=== PATIENT | female | born 1980 | race African-American/Black ===

== ENCOUNTER 2018-05-07 10:56 | Inpatient (IN) ==
[2018-05-09 18:08] VITALS: BP 131/79
== END 2018-05-09 20:50 | disposition home or self-care (01) | DRG 566 ==
LOC: N.LDOUT 10:56 → N.LD 10:59 → N.OB 15:41 → UNDODEPREF 05-08 15:18 → N.OB 05-08 16:54
PROVIDERS: ADMIT Obstetrics & Gynecology; ATTEND Obstetrics & Gynecology

== ENCOUNTER 2018-05-17 10:42 | Inpatient (IN) ==
[2018-05-17] MEDS ORDERED: CITRIC ACID/SODIUM CITRATE 30 ML UDCUP PO ONE (14:18)
[2018-05-17] MEDS ORDERED: LACTATED RINGERS 1,000 ML IV SCH ×3 (14:30→20:22)
[2018-05-17] MEDS ORDERED: LACTATED RINGERS 1,000 ML IV ONE ×2 (14:45→18:52)
[2018-05-17] MEDS ORDERED: FAMOTIDINE 20 MG/2 ML VIAL IV ONE (14:45)
[2018-05-17] MEDS ORDERED: METOCLOPRAMIDE 10 MG/2 ML VIAL IV ONE (15:11)
[2018-05-17 15:52] LABS: Basophils % 0.3 % (0.0-0.8); Eosinophils % 0.4 % (0.00-10.9); Hematocrit 32.6 VOL% (35.7-47.0); Immature Granulocytes % 1.3 %; Immature Granulocytes Absolute 0.13 #; Lymphocytes # 3.1 10*3/uL (1.4-4.0); Lymphocytes % 31.4 % (21.3-54.2); Mean Corpuscular HGB Conc 33.7 GM/DL (32-36); Mean Corpuscular Hemoglobin 30 PG (27-34); Mean Corpuscular Volume 88.6 FL (87-102); Mean Platelet Volume 12.5 FL (9.6-12.0); Monocytes # 0.4 10*3/uL (0.11-0.8); Monocytes % 4.3 % (1.7-12.7); Neutrophils # 6.2 10*3/uL (1.4-7.4); Neutrophils % 62.3 % (38.7-73.9); Platelet Count 85 T/CUMM (130-400); Red Blood Count 3.68 MC/CUMM (3.8-5.5); Red Cell Distribution Width 15.3 % (9.3-17.3)
[2018-05-17 16:05] LABS: INR 0.8; PT Patient Result 8.7 SECS; Partial Thromboplastin Time 26.8 SECS (0-40)
[2018-05-17 16:24] LABS: Albumin 2.4 G/DL (3.4-5.0); Bilirubin,Total 0.5 MG/DL (0.2-1.0); Calcium 9.2 MG/DL (8.5-10.1); Osmolality,Calculated 276.5 MOS/KG (273-304); Potassium 4.5 MMOL/L (3.5-5.1); Total Protein 6.7 G/DL (6.4-8.3)
[2018-05-17] MEDS ORDERED: ceFAZolin 3,000 MG in SYRINGE 1 EACH IV ONE (17:00)
[2018-05-17] MEDS ORDERED: OXYTOCIN/LR 30 UNIT/1,000 ML BAG IV ONE (17:00)
[2018-05-17] MEDS ORDERED: OXYTOCIN 10 UNIT/ML VIAL IM ONE (17:00)
[2018-05-17] MEDS ORDERED: SUGAMMADEX 200 MG/2 ML VIAL IV ONE (17:08)
[2018-05-17 17:43] LABS: Apearance,Urine Slightly Hazy (Clear); Bacteria,Urine Occasional /HPF (Few); Bilirubin,Urine Negative (Negative); Blood, Urine Negative (Negative); Glucose,Urine (UA) Negative (Negative); Hyaline Casts,Urine 1 /LPF (0-3); Ketones,Urine Negative (Negative); Mucus,Urine Occasional /LPF (Occasional); Nitrite,Urine Negative (Negative); Protein,Urine >=500 MG/DL; RBC,Urine 1 /HPF (0-4); Squamous Epithelial Cell,Urine Occasional /HPF (0-10); Urine Color Yellow (Yellow); Urine Specific Gravity 1.009 (1.001-1.035); Urine Urobilinogen < 2.0 EU/DL (0.2-1.0); WBC,Urine 2 /HPF (0-6)
[2018-05-17] MEDS ORDERED: SODIUM CHLORIDE 0.9% 1,000 ML IV PRN (18:08)
[2018-05-17 18:30] LABS: Cord Venous Blood HCO3 17.3 MMOL/L; Cord Venous Blood PCO2 46.4 MMHG; Cord Venous Blood PO2 21.2
[2018-05-17] MEDS ORDERED: DEXAMETHASONE 10 MG/1 ML VIAL ONE (18:51)
[2018-05-17] MEDS ORDERED: SEVOFLURANE 1 UNIT/15 MINUTE INH ONE (18:51)
[2018-05-17] MEDS ORDERED: fentaNYL 100 MCG/2 ML VIAL ONE (18:51)
[2018-05-17] MEDS ORDERED: PROPOFOL 200 MG/20 ML VIAL IV ONE (18:51)
[2018-05-17] MEDS ORDERED: MIDAZOLAM 2 MG/2 ML VIAL ONE (18:51)
[2018-05-17] MEDS ORDERED: MORPHINE 10 MG/10 ML VIAL ONE (18:51)
[2018-05-17] MEDS ORDERED: PHENYLEPHRINE 1 MG/10 ML SYRINGE IV ONE (18:52)
[2018-05-17] MEDS ORDERED: NEOSTIGMINE 10 MG/10 ML VIAL ONE (18:52)
[2018-05-17] MEDS ORDERED: GLYCOPYRROLATE 0.4 MG/2 ML VIAL ONE (18:52)
[2018-05-17] MEDS ORDERED: ONDANSETRON 4 MG/2 ML VIAL ONE (18:52)
[2018-05-17] MEDS ORDERED: SUCCINYLCHOLINE 200 MG/10 ML VIAL ONE (18:52)
[2018-05-17] MEDS ORDERED: ROCURONIUM 100 MG/10 ML VIAL IV ONE (18:52)
[2018-05-17] MEDS ORDERED: ACETAMINOPHEN 1,000 MG/100 ML VIAL IV ONE (18:53)
[2018-05-17] MEDS ORDERED: ONDANSETRON 4 MG/2 ML VIAL IV PRN ×2 (18:57→20:22)
[2018-05-17] MEDS ORDERED: OXYTOCIN/LR 20 UNIT/1,000 ML BAG IV ONE (18:57)
[2018-05-17] MEDS ORDERED: RHO(D) IMMUNE GLOBULIN 300 MCG SYRINGE IM ONE (18:57)
[2018-05-17] MEDS ORDERED: SIMETHICONE CHEW 80 MG TABLET PO PRN (18:57)
[2018-05-17] MEDS ORDERED: ACETAMINOPHEN 325 MG TABLET PO PRN (18:57)
[2018-05-17] MEDS ORDERED: ONDANSETRON 4 MG/2 ML VIAL IV ONE (19:52)
[2018-05-17] MEDS ORDERED: MEPERIDINE 25 MG/1 ML VIAL IV PRN (19:52)
[2018-05-17] MEDS ORDERED: hydrOXYzine HCL 25 MG/1 ML VIAL IM PRN ×2 (19:52→20:22)
[2018-05-17] MEDS ORDERED: diphenhydrAMINE 50 MG/1 ML VIAL IV ONE (19:52)
[2018-05-17] MEDS ORDERED: SODIUM CHLORIDE 0.9% 1,000 ML IV SCH (20:00)
[2018-05-17] MEDS ORDERED: NALOXONE 0.4 MG/ML VIAL IV PRN ×2 (20:19→20:22)
[2018-05-17] MEDS ORDERED: diphenhydrAMINE 50 MG/1 ML VIAL IV PRN (20:22)
[2018-05-17] MEDS ORDERED: MORPHINE PCA 30 MG/30 ML SYRINGE IV SCH (20:30)
[2018-05-17] MEDS: MORPHINE PCA 30 MG/30 ML SYRINGE IV SCH (20:36)
[2018-05-17] MEDS ORDERED: hydrALAZINE 20 MG/1 ML VIAL IV ONE ×2 (21:05→21:53)
[2018-05-17] MEDS: hydrALAZINE 25 MG TABLET PO SCH (21:16)
[2018-05-17] MEDS: SODIUM CHLORIDE 0.9% 1,000 ML IV SCH (22:34)
[2018-05-18] MEDS: hydrALAZINE 25 MG TABLET PO SCH ×4 (02:48→23:41)
[2018-05-18] MEDS ORDERED: MEPERIDINE 50 MG/1 ML VIAL IV PRN (08:45)
[2018-05-18] MEDS: FUROSEMIDE 40 MG/4 ML VIAL IV SCH ×3 (10:12→21:27)
[2018-05-18] MEDS: MULTIVITAMIN (PRENATAL) TABLET PO SCH (10:12)
[2018-05-18] MEDS: DOCUSATE SODIUM 100 MG CAPSULE PO SCH ×2 (10:13→21:26)
[2018-05-18] MEDS: LACTATED RINGERS 1,000 ML IV SCH (10:15)
[2018-05-18] MEDS ORDERED: SODIUM CHLORIDE 0.9% 100 ML IV ONE (10:20)
[2018-05-18] MEDS: MORPHINE PCA 30 MG/30 ML SYRINGE IV SCH (10:28)
[2018-05-18] MEDS ORDERED: ceFAZolin 1,000 MG in SYRINGE 1 EACH IV SCH (10:30)
[2018-05-18 14:20] LABS: Basophils % 0.2 % (0.0-0.8); Hematocrit 28.8 VOL% (35.7-47.0); Hemoglobin 9.9 GM/DL (12.0-16.0); Immature Granulocytes % 1.4 %; Immature Granulocytes Absolute 0.36 #; Lymphocytes # 3.9 10*3/uL (1.4-4.0); Lymphocytes % 14.7 % (21.3-54.2); Mean Corpuscular HGB Conc 34.4 GM/DL (32-36); Mean Corpuscular Hemoglobin 30 PG (27-34); Mean Corpuscular Volume 88.3 FL (87-102); Mean Platelet Volume 11.6 FL (9.6-12.0); Monocytes # 1.6 10*3/uL (0.11-0.8); Neutrophils # 20.6 10*3/uL (1.4-7.4); Neutrophils % 77.7 % (38.7-73.9); Platelet Count 109 T/CUMM (130-400); Red Blood Count 3.26 MC/CUMM (3.8-5.5); Red Cell Distribution Width 15.9 % (9.3-17.3); White Blood Count 26.5 T/CUMM (4-12)
[2018-05-18] MEDS: oxyCODONE/ACETAMINOPHEN 5-325 MG TABLET PO PRN ×2 (14:31→21:26)
[2018-05-18 15:55] LABS: Hypochromasia Slight; Platelet Estimate Decreased
[2018-05-18] MEDS: MAGNESIUM HYDROXIDE SUSP 30 ML UDCUP PO PRN (21:25)
[2018-05-19] MEDS: oxyCODONE/ACETAMINOPHEN 5-325 MG TABLET PO PRN ×4 (01:27→20:38)
[2018-05-19] MEDS ORDERED: FUROSEMIDE 40 MG/4 ML VIAL IV SCH (05:30)
[2018-05-19] MEDS: hydrALAZINE 25 MG TABLET PO SCH ×4 (05:48→17:48)
[2018-05-19] MEDS: FUROSEMIDE 40 MG/4 ML VIAL IV SCH (05:49)
[2018-05-19] MEDS: MULTIVITAMIN (PRENATAL) TABLET PO SCH (08:55)
[2018-05-19] MEDS: DOCUSATE SODIUM 100 MG CAPSULE PO SCH ×2 (08:55→20:38)
[2018-05-19] MEDS: IBUPROFEN 800 MG TABLET PO PRN (16:05)
[2018-05-19] MEDS: MAGNESIUM HYDROXIDE SUSP 30 ML UDCUP PO PRN (20:38)
[2018-05-19] MEDS: SODIUM CHLORIDE 0.9% 1,000 ML IV SCH ×2 (20:55→20:57)
[2018-05-19] MEDS: LACTATED RINGERS 1,000 ML IV SCH (20:56)
[2018-05-20] MEDS: IBUPROFEN 800 MG TABLET PO PRN ×2 (01:12→08:48)
[2018-05-20] MEDS: hydrALAZINE 25 MG TABLET PO SCH ×5 (01:12→23:40)
[2018-05-20] MEDS: oxyCODONE/ACETAMINOPHEN 5-325 MG TABLET PO PRN (06:39)
[2018-05-20] MEDS: MULTIVITAMIN (PRENATAL) TABLET PO SCH (08:47)
[2018-05-20] MEDS: DOCUSATE SODIUM 100 MG CAPSULE PO SCH ×2 (08:47→21:00)
[2018-05-20] MEDS ORDERED: ALUMINUM/MAGNES/SIMETH MAX STR 30 ML UDCUP PO PRN (20:24)
[2018-05-21] MEDS: oxyCODONE/ACETAMINOPHEN 5-325 MG TABLET PO PRN (04:21)
[2018-05-21] MEDS: hydrALAZINE 25 MG TABLET PO SCH ×2 (06:04→11:40)
[2018-05-21 07:54] VITALS: BP 152/84
[2018-05-21] MEDS: DOCUSATE SODIUM 100 MG CAPSULE PO SCH (08:38)
[2018-05-21] MEDS: MULTIVITAMIN (PRENATAL) TABLET PO SCH (08:38)
== END 2018-05-21 13:30 | disposition home or self-care (01) | DRG 540 ==
LOC: N.ULTRA 10:42 → N.LD 10:46 → N.OB 05-18 13:02
PROVIDERS: ADMIT Obstetrics & Gynecology; ATTEND Obstetrics & Gynecology